=== PATIENT | female | born 2000 | race Caucasian/White ===

== ENCOUNTER → 2021-03-20 09:45 | Outpatient (BNVA) | payer SELFPAY | PROVIDERS: PCP Internal Medicine; Visit Provider Internal Medicine Rheumatology | DX: M15.9 Polyosteoarthritis, unspecified (principal); M32.9 Systemic lupus erythematosus, unspecified; Z79.899 Other long term (current) drug therapy; Z11.59 Encounter for screening for other viral diseases; Z11.1 Encounter for screening for respiratory tuberculosis; R55 Syncope and collapse; Z71.85 Encounter for immunization safety counseling; F17.200 Nicotine dependence, unspecified, uncomplicated | CPT/HCPCS: 99204 ==

== ENCOUNTER 2021-03-20 12:09 | Outpatient (CLI) | payer MEDICAID, SELFPAY ==
--- NOTE | 2021-03-20 12:17 | XR_ITS ---
WS: [id number] Exam: XR foot LT min 3V* [id number] Date/Time of Exam: 03/20/2021 12:17 PM Reason For Exam: Z79.899 - Other [facility] (current) drug therapy Findings: The foot was examined in multiple views and reveals no fractures or displacements of bone. No bony a nomalies are noted. The bony elements are in adequate alignment. The joint spaces are smooth and eq uidistant. XR/XR foot LT min 3V* [id number] IMPRESSION: Negative left foot.
--- NOTE | 2021-03-20 12:17 | XR_ITS ---
WS: [id number] Exam: XR hand LT min 3V* [id number] Date/Time of Exam: 03/20/2021 12:17 PM Reason For Exam: Z79.899 - Other shelter (current) drug therapy Findings: No fractures, soft tissue swelling, or unusual calcifications are noted. The hand shows normal bony alignment. There is no irregularity of the bony architecture. XR/XR hand LT min 3V* [id number] IMPRESSION: Normal left hand.
--- NOTE | 2021-03-20 12:17 | XR_ITS ---
WS: [id number] Exam: XR hand RT min 3V* [id number] Date/Time of Exam: 03/20/2021 12:17 PM Reason For Exam: Z79.899 - Other residential (current) drug therapy Findings: No fractures, soft tissue swelling, or unusual calcifications are noted. The hand shows normal bony alignment. There is no irregularity of the bony architecture. XR/XR hand RT min 3V* [id number] IMPRESSION: Normal right hand.
--- NOTE | 2021-03-20 12:17 | XR_ITS ---
WS: [id number] Exam: XR foot RT min 3V* [id number] Date/Time of Exam: 03/20/2021 12:17 PM Reason For Exam: Z79.899 - Other assisted (current) drug therapy Findings: The foot was examined in multiple views and reveals no fractures or displacements of bone. No bony a nomalies are noted. The bony elements are in adequate alignment. The joint spaces are smooth and eq uidistant. XR/XR foot RT min 3V* [id number] IMPRESSION: Negative right foot.
[2021-03-20 14:23] LABS: 25 Hydroxy Vitamin D 27 ng/mL (30-100)
[2021-03-20 14:30] LABS: Add Urine Culture? No; Amorphous Sediment Urine 3+ /hpf; Bacteria Urine TRACE /hpf; Bilirubin Urine Neg (Negative); Blood Urine Neg (Negative); Glucose Urine UA Norm (Normal); Ketones Urine Negative (Negative); Leukocyte Esterase Urine Negative (Negative); Nitrate Urine Negative (Negative); Protein Urine Neg (Negative); RBC Urine 0-4 /hpf (0-2); Specific Gravity, Urine 1.005 (1.005-1.030); Squamous Epithelial Cell Urine 0-4 /hpf (0-5); Sulfosalicylic Acid Urine Negative (Negative); Urine Appearance SL Hazy (CLEAR); Urine Color Yellow (Yellow); Urobilinogen Urine Norm (Negative); WBC Urine 0-4 /hpf (0-5); pH Urine 8 (5-7)
[2021-03-20 14:35] LABS: Urine Creatinine 130 mg/dL (28-217); Urine Protein Random 6 mg/dL
[2021-03-20 14:57] LABS: Complement C3 114 mg/dL (90-180)
[2021-03-21 12:13] LABS: COMPLEMENT COMPONENT C3C 110 mg/dL (83-193); COMPLEMENT COMPONENT C4C 16 mg/dL (15-57)
[2021-03-22 10:08] LABS: COMPLEMENT, TOTAL (CH50) >60 U/mL (31-60)
[2021-03-22 14:28] LABS: Quantiferon Mitogen 9.25 IU/mL; Quantiferon Nil 0.02 IU/mL; Quantiferon Plus TB2 <0.00 IU/mL; Quantiferon TB Gold NEGATIVE (NEGATIVE)
[2021-03-22 15:07] LABS: THYROID PEROXIDASE ANTIBODIES 1 IU/mL (<9)
[2021-03-22 22:33] LABS: ANA PATTERN Nuclear, Speckled; ANA SCREEN, IFA POSITIVE (NEGATIVE)
[2021-03-23 11:19] LABS: CENTROMERE B ANTIBODY <1.0 NEG AI (<1.0 NEG); JO-1 ANTIBODY <1.0 NEG AI (<1.0 NEG); RNP ANTIBODY <1.0 NEG AI (<1.0 NEG); SCL-70 ANTIBODY <1.0 NEG AI (<1.0 NEG); SJOGREN'S ANTIBODY (SS-A) <1.0 NEG AI (<1.0 NEG); SM ANTIBODY <1.0 NEG AI (<1.0 NEG); SS-B <1.0 NEG AI (<1.0 NEG)
[2021-03-24 11:28] LABS: DNA AB (DS) CRITHIDIA,IFA NEGATIVE (NEGATIVE)
[2021-03-30 10:30] LABS: Hepatitis B Core AB, Total Non-Reactive (Nonreactive); Hepatitis B Surface Antigen Non-Reactive (Nonreactive)
== END 2021-03-20 12:10 | disposition home or self-care (01) ==
PROVIDERS: PCP Internal Medicine; Visit Provider Internal Medicine Rheumatology
DX: M19.90 Unspecified osteoarthritis, unspecified site (principal); M32.9 Systemic lupus erythematosus, unspecified; Z79.899 Other long term (current) drug therapy; Z11.1 Encounter for screening for respiratory tuberculosis; R76.8 Other specified abnormal immunological findings in serum
CPT/HCPCS: 36415; 73130; 73630; 81001; 82306; 82570; 84156; 86160; 86162; 86235; 86255; 86376; 86480; 86704; 86803; 87340

== ENCOUNTER → 2021-09-20 10:13 | Outpatient (BNVA) | payer MEDICAID, SELFPAY | PROVIDERS: PCP Internal Medicine; Visit Provider Internal Medicine Rheumatology | DX: M32.9 Systemic lupus erythematosus, unspecified (principal); M15.9 Polyosteoarthritis, unspecified; M54.12 Radiculopathy, cervical region; Z79.899 Other long term (current) drug therapy; Z71.85 Encounter for immunization safety counseling | CPT/HCPCS: 80076; 81001; 82306; 82565; 82570; 84156; 85025; 86140; 99214 ==

== ENCOUNTER → 2022-01-01 14:49 | Outpatient (BNVA) | payer MEDICAID, SELFPAY | PROVIDERS: PCP Internal Medicine; Visit Provider Internal Medicine Rheumatology | DX: M32.9 Systemic lupus erythematosus, unspecified (principal); Z79.899 Other long term (current) drug therapy; M54.12 Radiculopathy, cervical region; M15.9 Polyosteoarthritis, unspecified | CPT/HCPCS: 36415; 80076; 82565; 84439; 84443; 85025; 86140; 99214 ==

== ENCOUNTER 2022-05-29 10:58 | Outpatient (CLI) | payer MEDICAID, SELFPAY ==
[2022-05-29 11:31] LABS: Basophils # 0.1 10^3/uL (0.0-0.1); Basophils % 0.7 %; Eosinophils # 0.1 10^3/uL (0.0-0.8); Eosinophils % 1.4 %; Hematocrit 41.7 % (37.0-47.0); Hemoglobin 13.7 g/dL (11.5-15.3); Lymphocytes # 1.9 10^3/uL (0.8-4.8); Lymphocytes % 25.5 %; Mean Corpuscular HGB Conc 32.9 g/dL (30.0-36.0); Mean Corpuscular Hemoglobin 29.1 pg (28.0-34.0); Mean Corpuscular Volume 88.5 fl (81-99); Mean Platelet Volume 9.6 fL (7.4-10.4); Monocytes # 0.5 10^3/uL (0.2-0.9); Monocytes % 6.3 %; Neutrophils % 65.8 %; Nucleated Red Blood Cells % 0 %; Platelet Count 328 10^3/cmm (130-400); Red Blood Count 4.71 10^6/uL (4.1-5.3); White Blood Count 7.3 10^3/uL (4.0-10.0)
[2022-05-29 11:57] LABS: Alanine Aminotransferase 10 U/L (0-33); Albumin Level 4.6 g/dL (3.5-5.2); Alkaline Phosphatase 56 U/L (35-105); Aspartate Amino Transferase 17 U/L (0-32); Globulin 2.9 g/dL (1.3-4.6); Glomerular Filtration Rate 103.7 mL/min (90-130); Total Bilirubin 0.5 mg/dL (0.15-1.2); Total Protein 7.5 g/dL (6.6-8.7)
== END 2022-05-29 10:59 | disposition home or self-care (01) ==
PROVIDERS: PCP Internal Medicine; Visit Provider Internal Medicine Rheumatology
DX: M19.90 Unspecified osteoarthritis, unspecified site (principal); M32.9 Systemic lupus erythematosus, unspecified; Z79.899 Other long term (current) drug therapy
CPT/HCPCS: 36415; 80076; 82565; 85025; 86140